=== PATIENT | female | born 1970 | race Caucasian/White ===

== ENCOUNTER 2020-08-21 12:58 | Emergency (ER) | payer BC, OTHER ==
[2020-08-21 14:14] LABS: RED BLOOD COUNT 5.35 M/UL (4.00-5.10); WHITE BLOOD COUNT 13.7 K/UL (4.5-11.0)
[2020-08-21 15:34] LABS: BUN/CREATININE RATIO 41 (0-10)
== END 2020-08-21 17:58 | disposition home or self-care (01) ==
LOC: ER1 12:58
PROVIDERS: Emergency Medicine
DX: U07.1 COVID-19 (principal); F41.9 Anxiety disorder, unspecified; E87.6 Hypokalemia; Z88.2 Allergy status to sulfonamides
CPT/HCPCS: 71045; 80053; 81001; 82550; 82553; 83874; 84484; 84703; 85025; 85379; 87086; 93005; 99285; J7040

== ENCOUNTER → 2021-07-15 | Outpatient (CLI) | payer OTHER | LOC: KOH-I 11:01 | DX: M54.2 Cervicalgia (principal); M54.6 Pain in thoracic spine; M25.512 Pain in left shoulder; M25.511 Pain in right shoulder; M25.78 Osteophyte, vertebrae | CPT/HCPCS: 72040; 72070; 73030 ==